=== PATIENT | female | born 1955 | race Caucasian/White ===

== ENCOUNTER 2016-11-24 11:19 | Emergency (ER) | payer OTHER ==
[~2016-11-24] VITALS: Ht 165.1 cm; Wt 57.2 kg
[~2016-11-24 11:19] MED LIST: ATV5 PO; FLEC50TA20 PO; PRM625 PO; SERT50TA PO
[2016-11-24 11:35] VITALS: TEMP 36.9; Ht 165.1 cm; Wt 57.2 kg
[2016-11-24 13:24] LABS: BASO % 0.2 %; BASO ABS # 0.02 K/uL (0-0.2); COMPLETE YES; EOS % 1.4 %; HEMATOCRIT 40.9 % (37-47); IG% 0.2 %; LYMPH % 19.9 %; LYMPH ABS # 1.95 K/uL (1.2-3.4); MEAN CELL VOLUME 92.5 fL (80-100); MEAN CORPUSCULAR HEMOGLOBIN 32.1 pg (25-34); MEAN CORPUSCULAR HGB CONC 34.7 g/dl (32-36); MEAN PLATELET VOLUME 9.2 fL (7.4-10.4); MONO % 9.8 %; NEUT % 68.5 %; PLATELET COUNT 355 K/uL (130-400); RED BLOOD COUNT 4.42 M/uL (4.2-5.4)
[2016-11-24] MEDS ORDERED: ONDANSETRON INJ 2 MG/ML 2 ML VIAL IV STA (13:39)
[2016-11-24 13:41] LABS: URINE APPEARANCE TURBID (CLEAR); URINE BILIRUBIN NEG (NEG); URINE COLOR DK YELLOW; URINE NITRITE NEG (NEG); URINE SPECIFIC GRAVITY 1.023 (1.000-1.030); UROBILINOGEN NEG (NEG); ZZUR CULT IF INDIC CLEAN CATCH NO
[2016-11-24 13:43] LABS: MANUAL MICROSCOPIC REQUIRED? NO; REVIEW REQ? YES
[2016-11-24 13:44] LABS: BUN/CREATININE RATIO 16.6 (10-20); CALCIUM 9.1 mg/dl (8.5-10.1); CREATININE 0.71 mg/dl (0.60-1.20); POTASSIUM 3.5 mmol/L (3.5-5.1)
[2016-11-24] MEDS ORDERED: SODIUM CHLORIDE 0.9% 1000ML 1,000 ML IV SCH (13:45)
[2016-11-24 13:46] LABS: ALB/GLOB RATIO 1.2 (0.9-2)
--- NOTE | 2016-11-24 13:54 | EMERGENCY ROOM VISIT NOTE ---
History First contact with patient: 13:29 Chief Complaint: ABDOMINAL PAIN Stated Complaint: STOMACH PAIN History of Present Illness The patient is a 61 year old female who presents to the Emergency Room with complaints of three weeks of abdominal pain. A few weeks ago the pt saw her PCP Dr Villa who was concerned about gallbladder pathology, and she had a gallbladder US which was normal. She was then diagnosed with obstipation and has been taking Miralax. She has been passing watery small amounts of stool but nothing solid or large. She is still passing urine normally. She smokes 3/4 to 1 pack per day. She has been under a lot of stress lately as her just had heart surgery in [place]. She has lost her appetite as well, but tried to eat rice last night and then woke up this morning and threw up undigested rice at 6am. Review of Systems See HPI for pertinent positives & negatives. A total of 10 systems reviewed and were otherwise negative. Past Medical/Surgical History Medical Problems: (1) Anxiety State Nos (2) Depression (3) IBS (irritable bowel syndrome) (4) Intermittent palpitations (5) Tobacco Use Disorder Surgical Problems: (1) H/O: hysterectomy Appendectomy Family History Hypertension parents, and cancer in family Social History Smoking Status: Current Every Day Smoker (/4-1 PPD) Smokeless Tobacco Use: No Alcohol Use: none Drug Use: none Marital Status: Housing Status: lives with family Current/Historical Medications Scheduled Flecainide (Tambocor), 75 MG PO BID Lorazepam (Lorazepam), 0.5 MG PO BID Pantoprazole (Protonix), 40 MG PO BID Sertraline (Zoloft), 75 MG PO DAILY [Anti Deprss], 30 MG PO DAILY Allergies Coded Allergies: Azithromycin (Verified Allergy, Unknown, 11/24/16) Erythromycin (Verified Allergy, Unknown, 11/24/16) Penicillins (Verified Allergy, Unknown, 11/24/16) Sulfa Drugs (Verified Allergy, Unknown, 11/24/16) Physical Exam Vital Signs Date Time Temp Pulse Resp B/P Pulse Ox O2 Delivery O2 Flow Rate FiO2 11/24/16 15:49 69 14 98/66 96 Room Air 11/24/16 13:18 80 106/60 99 11/24/16 11:35 36.9 85 18 95/73 100 Room Air Physical Exam GENERAL: Awake, alert, well-appearing, in mild distress HENT: Normocephalic, atraumatic. Oropharynx unremarkable but dry. EYES: Normal conjunctiva. Sclera non-icteric. NECK: Supple. No nuchal rigidity. FROM. No JVD. RESPIRATORY: Clear to auscultation. CARDIAC: Regular rate, normal rhythm. Extremities warm and well perfused. Pulses equal. ABDOMEN: Soft, non-distended, tenderness to palpation diffusely. No rebound or guarding. No masses. RECTAL: Deferred. MUSCULOSKELETAL: Chest examination reveals no tenderness. The back is symmetrical on inspection without obvious abnormality. There is no CVA tenderness to palpation. No joint edema. LOWER EXTREMITIES: Calves are equal size bilaterally and non-tender. No edema. No discoloration. NEURO: Normal sensorium. No sensory or motor deficits noted. SKIN: No rash or jaundice noted. Medical Decision & Procedures Laboratory Results 11/24/16 13:10 Red Blood Count 4.42, Mean Corpuscular Volume 92.5, Mean Corpuscular Hemoglobin 32.1, Mean Corpuscular Hemoglobin Concent 34.7, Mean Platelet Volume 9.2, Neutrophils (%) (Auto) 68.5, Lymphocytes (%) (Auto) 19.9, Monocytes (%) (Auto) 9.8, Eosinophils (%) (Auto) 1.4, Basophils (%) (Auto) 0.2, Neutrophils # (Auto) 6.71, Lymphocytes # (Auto) 1.95, Monocytes # (Auto) 0.96, Eosinophils # (Auto) 0.14, Basophils # (Auto) 0.02 11/24/16 13:10 Test 11/24/16 13:10 White Blood Count 9.80 K/uL (4.8-10.8) Red Blood Count 4.42 M/uL (4.2-5.4) Hemoglobin 14.2 g/dL (12.0-16.0) Hematocrit 40.9 % (37-47) Mean Corpuscular Volume 92.5 fL (80-100) Mean Corpuscular Hemoglobin 32.1 pg (25-34) Mean Corpuscular Hemoglobin Concent 34.7 g/dl (32-36) Platelet Count 355 K/uL (130-400) Mean Platelet Volume 9.2 fL (7.4-10.4) Neutrophils (%) (Auto) 68.5 % Lymphocytes (%) (Auto) 19.9 % Monocytes (%) (Auto) 9.8 % Eosinophils (%) (Auto) 1.4 % Basophils (%) (Auto) 0.2 % Neutrophils # (Auto) 6.71 K/uL (1.4-6.5) Lymphocytes # (Auto) 1.95 K/uL (1.2-3.4) Monocytes # (Auto) 0.96 K/uL (0.11-0.59) Eosinophils # (Auto) 0.14 K/uL (0-0.5) Basophils # (Auto) 0.02 K/uL (0-0.2) RDW Standard Deviation 47.4 fL (36.4-46.3) RDW Coefficient of Variation 14.0 % (11.5-14.5) Immature Granulocyte % (Auto) 0.2 % Immature Granulocyte # (Auto) 0.02 K/uL (0.00-0.02) Urine Color DK YELLOW Urine Appearance TURBID (CLEAR) Urine pH 5.0 (4.5-7.5) Urine Specific [place] 1.023 (1.000-1.030) Urine Protein NEG (NEG) Urine Glucose (UA) NEG (NEG) Urine Ketones TRACE (NEG) Urine Occult Blood NEG (NEG) Urine Nitrite NEG (NEG) Urine Bilirubin NEG (NEG) Urine Urobilinogen NEG (NEG) Urine Leukocyte Esterase NEG (NEG) Urine WBC (Auto) 1-5 /hpf (0-5) Urine RBC (Auto) 0-4 /hpf (0-4) Urine Hyaline Casts (Auto) 1-5 /lpf (0-5) Urine Epithelial Cells (Auto) 10-20 /lpf (0-5) Urine Bacteria (Auto) NEG (NEG) Urine Crystals See comments (NONE PRSENT) Anion Gap 6.0 mmol/L (3-11) Est Creatinine Clear Calc Drug Dose 76.8 ml/min Estimated GFR () 108.1 Estimated GFR (Non- 93.2 BUN/Creatinine Ratio 16.6 (10-20) Calcium Level 9.1 mg/dl (8.5-10.1) Total Bilirubin 0.3 mg/dl (0.2-1) Aspartate Amino Transf (AST/SGOT) 35 U/L (15-37) Alanine Aminotransferase (ALT/SGPT) 44 U/L (12-78) Alkaline Phosphatase 78 U/L (45-117) Total Protein 7.3 gm/dl (6.4-8.2) Albumin 4.0 gm/dl (3.4-5.0) Globulin 3.3 gm/dl (2.5-4.0) Albumin/Globulin Ratio 1.2 (0.9-2) Lipase 127 U/L (73-393) Medications Administered Medications (Trade) Dose Ordered Sig/Simi Route Start Time Stop Time Status Last Admin Dose Admin Sodium Chloride (Nss 1000ml) 1,000 ml @ 999 mls/hr Q1H1M IV 11/24/16 13:45 11/24/16 16:43 DC 11/24/16 14:00 999 MLS/HR Ondansetron HCl (Zofran Inj) 4 mg NOW STAT IV 11/24/16 13:39 11/24/16 13:40 DC 11/24/16 14:[address] ANGIO ABD/PELVIS WITH CONTRAST CT DOSE: 241.45 mGy.cm CLINICAL HISTORY: Pulsatile abdominal mass. Abdominal pain and diarrhea. TECHNIQUE: Patient was scanned in a dynamic helical fashion during intravenous administration of 118 cc Optiray 320. MIP imaging was performed. COMPARISON STUDY: None. FINDINGS: Visualized portions lung bases reveal evidence for emphysema with dependent subpleural cystic change. There is a 16 mm hypervascular focus within the right lobe of the liver. No gallbladder abnormalities are visualized. There is heterogeneous enhancement of the spleen, likely secondary to the phase of contrast enhancement. This makes exclusion of splenic nodules difficult. Masses are visualized. No adrenal masses are visualized. No renal masses are visualized. There are no transition zones indicate bowel obstruction. There is no acute diverticulitis. There are no findings to indicate acute appendicitis. The uterus appears surgically absent. There is no evidence of pathologic adenopathy. There is no evidence of abdominal aortic aneurysm or dissection. There is no evidence of celiac or superior mesenteric artery stenosis. There is no evidence of renal artery stenosis. The inferior mesenteric artery is patent. There is no evidence of iliac artery stenosis. There are subchondral cystic changes in the right femoral head. There is bilateral L5 spondylolysis. There is a grade 1 spinal listhesis of L5 and S1. IMPRESSION: 1. No evidence of abdominal aortic aneurysm or dissection 2. No evidence of aortic or iliac artery stenosis 3. No evidence of superior mesenteric, celiac, or renal artery stenosis 4. No evidence of bowel obstruction. No evidence of free air 5. Nonspecific 16 mm hypervascular focus within the right lobe of the liver ED Course 1:40: I evaluated the patient in room A4B. A complete history and physical were performed. 1:47: I discussed the case with Dr. Parekh. A CBC and CMP were ordered and already completed. I ordered a CT Angiogram of the Abdomen/Pelvis with contrast. 3:00: I reviewed the CT scan result to the patient. I gave her oral liquids to try drinking which she was able to tolerate well. 4:11: I reviewed the patient again. She was given a prescription for 2 weeks of Protonix at higher dose to help her symptoms. She was discharged home in good condition. Medical Decision 61 yo F with 3 weeks of abdominal pain and diarrhea - differential includes bowel obstruction, aortic aneurysm rupture, SMA syndrome, constipation, ileus. She had an IV placed and labs drawn. She had a very pulsatile aorta one exam hence CT angiogram was completed, but this was normal. This also ruled out a bowel obstruction. She was nontender on repeat exam. She was reviewed in the PDMP and only receives Rx for benzodiazepines every month from her PCP. She was not given any narcotics during her ED stay. She was given a trial of Protonix for 2 weeks and advised to follow up with her PCP within a week. She was discharged home in good condition. Impression Primary Impression: Obstipation Departure Information Dispostion Home / Self-Care Condition GOOD Prescriptions Pantoprazole (Protonix) 40 Mg Tab 40 MG PO BID for 14 Days, #28 TAB Prov: Daniela Mendes MD 11/24/16 Referrals Danielle Arias D.O. (PCP) Patient Instructions My [facility] Resident Tracking Resident Involvement: Resident Care Provided Care Provided: Adult ED
[2016-11-24] MEDS ORDERED: [UNRECOGNIZED DRUG - REMARK] PO (13:58)
[2016-11-24] MEDS ORDERED: ATV5 PO (13:58)
[2016-11-24] MEDS ORDERED: OPTIRAY 320 IV PRN (14:00)
--- NOTE | 2016-11-24 14:32 | DIAGNOSTIC IMAGING REPORT ---
CT ANGIO ABD/PELVIS WITH CONTRAST CT DOSE: 241.45 mGy.cm CLINICAL HISTORY: Pulsatile abdominal mass. Abdominal pain and diarrhea. TECHNIQUE: Patient was scanned in a dynamic helical fashion during intravenous administration of 118 cc Optiray 320. MIP imaging was performed. COMPARISON STUDY: None. FINDINGS: Visualized portions lung bases reveal evidence for emphysema with dependent subpleural cystic change. There is a 16 mm hypervascular focus within the right lobe of the liver. No gallbladder abnormalities are visualized. There is heterogeneous enhancement of the spleen, likely secondary to the phase of contrast enhancement. This makes exclusion of splenic nodules difficult. Masses are visualized. No adrenal masses are visualized. No renal masses are visualized. There are no transition zones indicate bowel obstruction. There is no acute diverticulitis. There are no findings to indicate acute appendicitis. The uterus appears surgically absent. There is no evidence of pathologic adenopathy. There is no evidence of abdominal aortic aneurysm or dissection. There is no evidence of celiac or superior mesenteric artery stenosis. There is no evidence of renal artery stenosis. The inferior mesenteric artery is patent. There is no evidence of iliac artery stenosis. There are subchondral cystic changes in the right femoral head. There is bilateral L5 spondylolysis. There is a grade 1 spinal listhesis of L5 and S1. IMPRESSION: 1. No evidence of abdominal aortic aneurysm or dissection 2. No evidence of aortic or iliac artery stenosis 3. No evidence of superior mesenteric, celiac, or renal artery stenosis 4. No evidence of bowel obstruction. No evidence of free air 5. Nonspecific 16 mm hypervascular focus within the right lobe of the liver Electronically signed by: Chin Sahu M.D. 11/24/2016 2:31 PM Dictated Date/Time: 11/24/2016 2:25 PM
[2016-11-24 15:49] VITALS: BP 98/66; PULSE 69; O2SAT 96
[2016-11-24] MEDS ORDERED: PANT40TA PO (15:55)
--- NOTE | 2016-11-25 23:51 | EMERGENCY ROOM VISIT NOTE ---
ED Visit Note First contact with patient: 13:29 I have personally evaluated this patient examined her and reviewed the pertinent labs and data. I have discussed the case with Nancy, the resident physician contact center assistant and agree with the plan. Please refer to the PA note. This patient comes in after having some abdominal pain for about 3 weeks. It's in the epigastric area. She is minimally tender in epigastric area on my exam. Blood work was obtained and shows nothing to suggest infection liver or pancreas or gallbladder disease. We did a CAT scan of her abdomen there are no acute findings seen within the abdomen, no aneurysm or infection. This may be GI related. She is to follow-up with her regular doctor, use acid suppression, and return ER if any new problems or concerns.
== END 2016-11-24 16:13 | disposition home or self-care (01) ==
LOC: C.EDB 11:21 → C.EDA 16:13
DX: K59.00 Constipation, unspecified (principal); F17.200 Nicotine dependence, unspecified, uncomplicated; K58.9 Irritable bowel syndrome, unspecified; Z82.49 Family history of ischemic heart disease and other diseases of the circulatory system

== ENCOUNTER 2016-11-27 13:02 | Emergency (ER) | payer OTHER ==
[~2016-11-27] VITALS: Ht 165.1 cm; Wt 56.7 kg
[~2016-11-27 13:02] MED LIST changes: +PANT40TA PO; -PRM625 PO; +[UNRECOGNIZED DRUG - REMARK] PO
[2016-11-27 13:09] VITALS: TEMP 36.6; Ht 165.1 cm; Wt 56.7 kg
[2016-11-27] MEDS ORDERED: ONDANSETRON INJ 2 MG/ML 2 ML VIAL IV STA (13:27)
[2016-11-27] MEDS ORDERED: SODIUM CHLORIDE 0.9% 1000ML 1,000 ML IV STA (13:27)
--- NOTE | 2016-11-27 13:32 | EMERGENCY ROOM VISIT NOTE ---
History First contact with patient: 13:21 Chief Complaint: DIARRHEA Stated Complaint: [id number] Nursing Triage Summary: pt c/o n/v/d/ was seen here tuesday sx persists History of Present Illness The patient is a 61 year old female who presents to the Emergency Room with complaints of persistent nausea, vomiting, diarrhea, she reports the symptoms started about 2 weeks ago and her last full meal was 2 Saturdays ago. She came to the ED on Tuesday and her workup at that time was negative and she was discharged home with Protonix. She reports since then she has had new watery diarrhea. Yesterday she was able to tolerate eating an egg and a piece of toast and then had diarrhea every 20 minutes from 11 PM to 4 AM. She also reports vague suprapubic abdominal pain and cramping. She does not feel like she can provide us a stool sample at this time. She has not been on any recent antibiotics. She denies fevers, chills, chest pain, shortness of breath. Review of Systems See HPI for pertinent positives & negatives. A total of 10 systems reviewed and were otherwise negative. Past Medical/Surgical History Medical Problems: (1) Anxiety State Nos (2) Depression (3) IBS (irritable bowel syndrome) (4) Intermittent palpitations (5) Tobacco Use Disorder Surgical Problems: (1) H/O: hysterectomy Family History No pertinent family history Social History Smoking Status: Current Every Day Smoker Alcohol Use: none Drug Use: none Marital Status: Housing Status: lives with family Current/Historical Medications Scheduled Flecainide (Tambocor), 75 MG PO BID Lorazepam (Lorazepam), 0.5 MG PO BID Pantoprazole (Protonix), 40 MG PO BID Sertraline (Zoloft), 75 MG PO DAILY [Anti Deprss], 30 MG PO DAILY Scheduled PRN Ondansetron Odt (Zofran Odt), 8 MG SL Q6H PRN for Nausea Allergies Coded Allergies: Azithromycin (Verified Allergy, Unknown, 11/24/16) Erythromycin (Verified Allergy, Unknown, 11/24/16) Penicillins (Verified Allergy, Unknown, 11/24/16) Sulfa Drugs (Verified Allergy, Unknown, 11/24/16) Physical Exam Vital Signs Date Time Temp Pulse Resp B/P Pulse Ox O2 Delivery O2 Flow Rate FiO2 11/27/16 16:07 63 18 98/64 97 Room Air 11/27/16 15:15 61 18 88/54 94 Room Air 11/27/16 13:09 36.6 83 18 91/59 96 Room Air Physical Exam GENERAL: Awake, alert, well-appearing, in no acute distress HENT: Normocephalic, atraumatic. Oropharynx unremarkable. EYES: Normal conjunctiva. Sclera non-icteric. NECK: Supple. No nuchal rigidity. FROM. No JVD. RESPIRATORY: Clear to auscultation. CARDIAC: Regular rate, normal rhythm. Extremities warm and well perfused. Pulses equal. ABDOMEN: Soft, non-distended. Very mild tenderness to RUQ. No rebound or guarding. No masses. RECTAL: Deferred. MUSCULOSKELETAL: Chest examination reveals no tenderness. The back is symmetrical on inspection without obvious abnormality. There is no CVA tenderness to palpation. No joint edema. LOWER EXTREMITIES: Calves are equal size bilaterally and non-tender. No edema. No discoloration. NEURO: Normal sensorium. No sensory or motor deficits noted. SKIN: No rash or jaundice noted. Medical Decision & Procedures Laboratory Results 11/27/16 13:30 Red Blood Count 4.23, Mean Corpuscular Volume 92.4, Mean Corpuscular Hemoglobin 31.9, Mean Corpuscular Hemoglobin Concent 34.5, Mean Platelet Volume 9.1, Neutrophils (%) (Auto) 61.4, Lymphocytes (%) (Auto) 29.4, Monocytes (%) (Auto) 7.5, Eosinophils (%) (Auto) 1.3, Basophils (%) (Auto) 0.3, Neutrophils # (Auto) 4.58, Lymphocytes # (Auto) 2.19, Monocytes # (Auto) 0.56, Eosinophils # (Auto) 0.10, Basophils # (Auto) 0.02 11/27/16 13:30 Test 11/27/16 13:30 11/27/16 15:20 11/27/16 16:12 11/27/16 17:10 White Blood Count 7.46 K/uL (4.8-10.8) Red Blood Count 4.23 M/uL (4.2-5.4) Hemoglobin 13.5 g/dL (12.0-16.0) Hematocrit 39.1 % (37-47) Mean Corpuscular Volume 92.4 fL (80-100) Mean Corpuscular Hemoglobin 31.9 pg (25-34) Mean Corpuscular Hemoglobin Concent 34.5 g/dl (32-36) Platelet Count 364 K/uL (130-400) Mean Platelet Volume 9.1 fL (7.4-10.4) Neutrophils (%) (Auto) 61.4 % Lymphocytes (%) (Auto) 29.4 % Monocytes (%) (Auto) 7.5 % Eosinophils (%) (Auto) 1.3 % Basophils (%) (Auto) 0.3 % Neutrophils # (Auto) 4.58 K/uL (1.4-6.5) Lymphocytes # (Auto) 2.19 K/uL (1.2-3.4) Monocytes # (Auto) 0.56 K/uL (0.11-0.59) Eosinophils # (Auto) 0.10 K/uL (0-0.5) Basophils # (Auto) 0.02 K/uL (0-0.2) RDW Standard Deviation 46.7 fL (36.4-46.3) RDW Coefficient of Variation 13.9 % (11.5-14.5) Immature Granulocyte % (Auto) 0.1 % Immature Granulocyte # (Auto) 0.01 K/uL (0.00-0.02) Anion Gap 12.0 mmol/L (3-11) Est Creatinine Clear Calc Drug Dose 59.6 ml/min Estimated GFR () 80.0 Estimated GFR (Non- 69.1 BUN/Creatinine Ratio 15.2 (10-20) Calcium Level 8.7 mg/dl (8.5-10.1) Total Bilirubin 0.3 mg/dl (0.2-1) Aspartate Amino Transf (AST/SGOT) 26 U/L (15-37) Alanine Aminotransferase (ALT/SGPT) 39 U/L (12-78) Alkaline Phosphatase 73 U/L (45-117) Total Protein 6.6 gm/dl (6.4-8.2) Albumin 3.6 gm/dl (3.4-5.0) Globulin 3.0 gm/dl (2.5-4.0) Albumin/Globulin Ratio 1.2 (0.9-2) Lipase 163 U/L (73-393) Urine Color YELLOW Urine Appearance CLEAR (CLEAR) Urine pH 5.0 (4.5-7.5) Urine Specific [place] 1.020 (1.000-1.030) Urine Protein NEG (NEG) Urine Glucose (UA) NEG (NEG) Urine Ketones 1+ (NEG) Urine Occult Blood NEG (NEG) Urine Nitrite NEG (NEG) Urine Bilirubin NEG (NEG) Urine Urobilinogen NEG (NEG) Urine Leukocyte Esterase NEG (NEG) Urine WBC (Auto) 1-5 /hpf (0-5) Urine RBC (Auto) 0-4 /hpf (0-4) Urine Hyaline Casts (Auto) 10-30 /lpf (0-5) Urine Epithelial Cells (Auto) 10-20 /lpf (0-5) Urine Bacteria (Auto) NEG (NEG) Urine Crystals CALCIUM OXALATE (NONE Urine Mucus PRESENT (NONE PRSENT) Urine Opiates Screen NEG (NEG) Urine Methadone, Qualitative NEG (NEG) Urine Barbiturates NEG (NEG) Urine Phencyclidine (PCP) Level NEG (NEG) Ur Amphetamine/Methamphetamine NEG (NEG) MDMA (Ecstasy) Screen NEG (NEG) Urine Benzodiazepines Screen NEG (NEG) Urine Cocaine Metabolite NEG (NEG) Urine Marijuana (THC) POS (NEG) Lactic Acid Level 0.4 mmol/L (0.4-2.0) Medications Administered Medications (Trade) Dose Ordered Sig/Simi Route Start Time Stop Time Status Last Admin Dose Admin Sodium Chloride (Nss 1000ml) 1,000 ml @ 999 mls/hr Q1H1M STAT IV 11/27/16 13:27 11/27/16 14:27 DC 11/27/16 13:40 999 MLS/HR Ondansetron HCl 4 mg 4 mg NOW STAT IV 11/27/16 13:27 11/27/16 13:29 DC 11/27/16 14:10 4 MG Sodium Chloride (Nss 1000ml) 1,000 ml @ 999 mls/hr Q1H1M IV 11/27/16 14:30 12/27/16 14:29 11/27/16 16:43 999 MLS/HR ED Course 1327: The patient was evaluated in room A4B. A complete history and physical examination was performed. 13:34: I discussed the case with the attending Dr. Parekh. I ordered a CBC, CMP , Lipase level, and 1L bolus of NSS. 13:54: I then ordered a urinalysis and urine drug screen. 14:30: I provided a second liter fluid bolus of normal saline. I then gave her a bottle of Gatorade to see if she could tolerate fluids by mouth which she handled well. 15:30: I reviewed the patient again, she reported she felt more pain in her right upper quadrant. She reported she had an ultrasound to look for gallstones 2 weeks ago which was said to be normal. I asked our Mission Coordinator to obtain this, which they were able to, and it was normal. I reviewed the patient with Dr. Parekh. We added on a Lactic Acid test to evaluate for ischemic colitis. 16:20: The patient was tolerating small amounts of crackers as well. She reported she felt ok. Medical Decision The patient is a 61-year-old female who presents with 2 weeks of diarrhea, nausea and vomiting, and vague right upper quadrant pain. Differential includes cholecystitis, pancreatitis, gastritis, gastroenteritis, appendicitis, diverticulitis. She was last seen by myself and Dr. Parekh on Tuesday for similar symptoms apart from diarrhea she had a CT of her abdomen at that time which was found to be normal and was put on Protonix and since then the patient reports this has not helped. She had repeat lab work today which was also unremarkable including a normal lipase level and LFTs. She had a ultrasound of her abdomen on November 17 which was within normal limits, so this was not repeated. She had a lactic acid completed to rule out ischemic colitis, which was negative. She was discharged in good condition and provided a prescription for Zofran as well. Impression Primary Impression: Diarrhea Departure Information Dispostion Home / Self-Care Condition GOOD Prescriptions Ondansetron Odt (ZOFRAN ODT) 8 Mg Soltab 8 MG SL Q6H Y for Nausea, #14 TAB Prov: Daniela Mendes MD 11/27/16 Referrals No Doctor, Assigned (PCP) Danielle Arias D.O. Patient Instructions My [facility] Resident Tracking Resident Involvement: Resident Care Provided Care Provided: Adult ED
[2016-11-27 13:44] LABS: BASO % 0.3 %; BASO ABS # 0.02 K/uL (0-0.2); COMPLETE YES; EOS % 1.3 %; HEMATOCRIT 39.1 % (37-47); IG% 0.1 %; LYMPH % 29.4 %; LYMPH ABS # 2.19 K/uL (1.2-3.4); MEAN CELL VOLUME 92.4 fL (80-100); MEAN CORPUSCULAR HEMOGLOBIN 31.9 pg (25-34); MEAN CORPUSCULAR HGB CONC 34.5 g/dl (32-36); MEAN PLATELET VOLUME 9.1 fL (7.4-10.4); MONO % 7.5 %; NEUT % 61.4 %; PLATELET COUNT 364 K/uL (130-400); RED BLOOD COUNT 4.23 M/uL (4.2-5.4); WHITE BLOOD COUNT 7.46 K/uL (4.8-10.8)
[2016-11-27 14:01] LABS: BUN/CREATININE RATIO 15.2 (10-20); CALCIUM 8.7 mg/dl (8.5-10.1); CREATININE 0.91 mg/dl (0.60-1.20); POTASSIUM 3.5 mmol/L (3.5-5.1)
[2016-11-27 14:04] LABS: ALB/GLOB RATIO 1.2 (0.9-2)
[2016-11-27] MEDS: SODIUM CHLORIDE 0.9% 1000ML 1,000 ML IV SCH ×3 (15:14→16:43)
[2016-11-27 15:35] LABS: URINE APPEARANCE CLEAR (CLEAR); URINE BILIRUBIN NEG (NEG); URINE COLOR YELLOW; URINE NITRITE NEG (NEG); UROBILINOGEN NEG (NEG); ZZUR CULT IF INDIC CLEAN CATCH NO
[2016-11-27 15:48] LABS: MANUAL MICROSCOPIC REQUIRED? NO; REVIEW REQ? YES
[2016-11-27 15:51] LABS: URINE MUCUS PRESENT (NONE PRSENT)
[2016-11-27] MEDS ORDERED: ONDA8TAB62 SL (16:25)
[2016-11-27 16:33] LABS: BENZODIAZEPINE, URINE NEG (NEG); COCAINE,URINE NEG (NEG); PHENCYCLIDINE, URINE NEG (NEG)
[2016-11-27 17:44] VITALS: BP 92/65; PULSE 61; O2SAT 96
--- NOTE | 2016-11-27 19:45 | EMERGENCY ROOM VISIT NOTE ---
ED Visit Note First contact with patient: 13:21 I have personally evaluated this patient examined her and reviewed the pertinent labs and data. I have discussed the case with the resident physician and agree with the plan. Please refer to the PA note This patient comes in with epigastric pain after eating . she does has diarrhea was saw her several days ago had extensive workup she had a negative CAT scan of the abdomen to time in fact it was this angiogram of the abdomen. We did check a lactic acid and it is normal. I do not think this is ischemic colitis. she does have diarrhea after eating. she has a history of irritable bowel and could be related to that we did recheck her labs and there is no significant change .there is nothing to suggest sepsis or infection or acute gallbladder liver or pancreas disease. We did order stool studies however the patient wasn' t able to give a specimen while she was here. she's had no recent antibiotic use or anything to suggest C. difficile so far. We did encourage her to follow up with her regular doctor. she did receive IV hydration here. She should return if : worsening symptoms, fever or chills, any new problems concerns. The patient and her were happy with plan and she was discharged to home.
== END 2016-11-27 17:49 | disposition home or self-care (01) ==
LOC: C.EDB 13:06 → C.EDA 17:49
DX: R19.7 Diarrhea, unspecified (principal); R11.2 Nausea with vomiting, unspecified; F41.9 Anxiety disorder, unspecified; F32.9 Major depressive disorder, single episode, unspecified; F17.210 Nicotine dependence, cigarettes, uncomplicated; Z79.899 Other long term (current) drug therapy